=== PATIENT | male | born 1955 | race Caucasian/White ===

== ENCOUNTER 2023-05-02 11:49 | Emergency (ER) | payer MEDICARE, OTHER ==
[~2023-05-02] VITALS: Ht 190.5 cm; Wt 97.7 kg
[2023-05-02] MEDS ORDERED: morphine 4 MG/ML inj SYRINge IV ONE ×2 (13:05→14:10)
[2023-05-02] MEDS ORDERED: ketorolac trometh. 30mg/ml inj. IV ONE (13:05)
[2023-05-02] MEDS ORDERED: ondansetron/PF 4mg/2ml inj IV ONE (13:05)
[2023-05-02 13:31] LABS: BASOPHILS % (AUTO) 0.4 % (0-1); EOSINOPHILS % (AUTO) 0.2 % (0-6); HEMATOCRIT 45.3 % (42.0-52.0); HEMOGLOBIN 15.4 g/dl (14.0-17.9); LYMPHOCYTES # (AUTO) 1.4 X10'3 (1.1-4.8); LYMPHOCYTES % (AUTO) 11.4 % (21-51); MEAN CORPUSCULAR HEMOGLOBIN 31.4 PG (27.0-31.0); MEAN CORPUSCULAR HGB CONC 34.1 g/dL (33.0-36.5); MEAN CORPUSCULAR VOLUME 92.3 FL (78-98); MEAN PLATELET VOLUME 8.5 FL (7.4-10.4); MONOCYTES # (AUTO) 0.8 X10'3 (0-0.9); NEUTROPHILS # (AUTO) 10.4 X10'3 (1.8-7.7); PLATELET COUNT 190 X10'3 (140-440); RED BLOOD COUNT 4.91 X10'6 (4.70-6.10); RED CELL DISTRIBUTION WIDTH 13.7 % (11.5-14.5); WHITE BLOOD COUNT 12.6 X10'3 (4.5-11.0)
[2023-05-02 13:45] LABS: ALANINE AMINOTRANSFERASE 33 U/L (12-78); ALBUMIN 4.3 G/DL (3.4-5.0); ALBUMIN/GLOBULIN RATIO 1.3 (1.1-1.5); ALKALINE PHOSPHATASE 64 IU/L (46-116); ANION GAP 12 (8-16); ASPARTATE AMINO TRANSFERASE 18 U/L (10-37); BILIRUBIN,TOTAL 0.6 MG/DL (0.1-1.0); BLOOD UREA NITROGEN 20 MG/DL (7-18); BUN/CREATININE RATIO 13.3 (10.0-20.0); CHLORIDE 107 MMOL/L (99-107); GLUCOSE 153 MG/DL (70-104); LIPASE 77 U/L (73-393); SODIUM 144 MMOL/L (135-145); TOTAL CARBON DIOXIDE 24.6 MMOL/L (24-32); TOTAL PROTEIN 7.6 G/DL (6.4-8.2); eGFR 47 ML/MIN
[2023-05-02 13:49] LABS: CALCIUM 9.4 MG/DL (8.5-10.1)
[2023-05-02] MEDS ORDERED: normal saline 1000ml 1,000 ML IV ONE ×2 (13:50→14:10)
--- NOTE | 2023-05-02 14:10 | NUR ---
DR. RIVAS HANDED OVER TO DR. BRENNER.
[2023-05-02] MEDS ORDERED: oxyCODONE/APAP 10/325mg tablet PO ONE (17:15)
[2023-05-02 17:17] LABS: CLARITY,URINE CLEAR (Clear); COLOR,URINE STRAW (Yellow); GLUCOSE, URINE NEGATIVE (Neg); KETONES,URINE NEGATIVE (Neg); LEUKOCYTE ESTERASE ,URINE NEGATIVE (Neg); NITRITES, URINE NEGATIVE (Neg); OCCULT BLOOD,URINE NEGATIVE (Neg); PH,URINE 6.5 (4.8-8.0); PROTEIN,URINE NEGATIVE (Neg); UROBILINOGEN,URINE 0.2 E.U/dL (0.2-1.0)
[2023-05-02 17:21] LABS: UA COLLECTION TYPE NON-SPECIFIED
[2023-05-02] MEDS ORDERED: HYDR-3973 PO (18:00)
[2023-05-02] MEDS ORDERED: ONDA4TAB12 PO (18:00)
[2023-05-02] MEDS ORDERED: FLO0.4C PO (18:00)
[2023-05-02 19:01] VITALS: BP 106/56
== END 2023-05-02 19:04 | disposition home or self-care (01) ==
LOC: ER 11:50
DX: N20.0 Calculus of kidney (principal); N23 Unspecified renal colic
CPT/HCPCS: 36415; 74176; 80053; 81003; 83690; 85025; 96361; 96374; 96375; 96376; 99285; J1885; J2270; J2405; J7030